=== PATIENT | female | born 1935 | race Caucasian/White ===

== ENCOUNTER → 2018-04-27 | Outpatient (CLI) | payer MEDICARE ==
[2018-04-27 09:44] LABS: ADD MAN DIFF? NO
[2018-04-27 09:58] LABS: BASO # 0.1 x10^3/uL (0.0-0.2); BASO % 1 % (0-3); EOS # 1.7 x10^3/uL (0.0-0.7); EOS % 15 % (0-3); HEMATOCRIT 40.3 % (36.0-47.0); HEMOGLOBIN 13.5 g/dL (12.0-15.5); LYMPH # 2.1 x10^3/uL (1.0-4.8); LYMPH % 19 % (24-48); MEAN CORPUSCULAR HEMOGLOBIN 32 pg (25-35); MEAN CORPUSCULAR HGB CONC 33 g/dL (31-37); MEAN CORPUSCULAR VOLUME 96 fL (79-100); MONO # 0.9 x10^3/uL (0.0-1.1); MONO % 8 % (0-9); NEUT # 6.3 x10^3uL (1.8-7.7); NEUT % 57 % (31-73); PLATELET COUNT 272 x10^3/uL (140-400); RED BLOOD COUNT 4.18 x10^6/uL (3.50-5.40); RED CELL DISTRIBUTION WIDTH 13.1 % (11.5-14.5); WHITE BLOOD COUNT 11.1 x10^3/uL (4.0-11.0)
[2018-04-27 10:02] LABS: ALBUMIN 3.8 g/dL (3.4-5.0); ANION GAP 7 (6-14); BLOOD UREA NITROGEN 23 mg/dL (7-20); CALCIUM 9.5 mg/dL (8.5-10.1); CARBON DIOXIDE 29 mmol/L (21-32); CHLORIDE 103 mmol/L (98-107); GLUCOSE 98 mg/dL (70-99); POTASSIUM 4.4 mmol/L (3.5-5.1); SODIUM 139 mmol/L (136-145)
[2018-04-27 10:03] LABS: PARTIAL THROMBOPLASTIN TIME 35 SEC (24-38)
[2018-04-27 10:07] LABS: INR 0.9 (0.8-1.1); PROTHROMBIN TIME PATIENT 11.7 SEC (11.7-14.0)
[2018-04-27 10:43] LABS: BILIRUBIN,URINE NEGATIVE (NEG); CLARITY,URINE CLEAR; COLOR,URINE YELLOW; GLUCOSE,URINE NEGATIVE (NEG); NITRITE,URINE POSITIVE (NEG); PROTEIN,URINE NEGATIVE (NEG-TRACE); UROBILINOGEN,URINE 0.2 mg/dL (0.2 mg/dL)
[2018-04-27 11:24] LABS: BACTERIA,URINE MANY /HPF (0-FEW); RBC,URINE OCC /HPF (0-2); SQUAMOUS EPITHELIAL CELL,UR MOD /LPF; WBC,URINE 20-40 /HPF (0-4)
[2018-04-27 12:23] LABS: SEDIMENTATION RATE 12 (0-25)
[2018-04-27 22:14] LABS: MRSA BY PCR Negative (Negative)
== END | disposition home or self-care (01) ==
LOC: SURGPAT 08:45
DX: Z01.818 Encounter for other preprocedural examination (principal); M19.012 Primary osteoarthritis, left shoulder; I10 Essential (primary) hypertension; I70.0 Atherosclerosis of aorta
CPT/HCPCS: 36415; 71046; 80048; 81001; 82040; 85025; 85610; 85651; 85730; 87086; 87641; 93005

== ENCOUNTER → 2020-06-04 | Outpatient (CLI) | payer MEDICARE, OTHER ==
[2018-05-13 12:29] VITALS: BP 150/60
[~2020-06-04] MED LIST: AMLO5TAB10 PO; ATEN100T PO; ESTR-113 PO; EZET1TAB30 PO; HYDR-2765 PO; HYDR-3164 PO; LISI30TA4 PO; MELO15TA23 PO; OXYB5TAB10 PO; TRAM50TA PO
[2020-06-04 11:14] LABS: BASO # 0.1 x10^3/uL (0.0-0.2); BASO % 1 % (0-3); EOS # 0.2 x10^3/uL (0.0-0.7); EOS % 3 % (0-3); HEMATOCRIT 42.1 % (36.0-47.0); LYMPH # 1.2 x10^3/uL (1.0-4.8); LYMPH % 17 % (24-48); MEAN CORPUSCULAR HEMOGLOBIN 32 pg (25-35); MEAN CORPUSCULAR HGB CONC 33 g/dL (31-37); MEAN CORPUSCULAR VOLUME 95 fL (79-100); MONO # 0.5 x10^3/uL (0.0-1.1); MONO % 7 % (0-9); NEUT # 5.3 x10^3/uL (1.8-7.7); NEUT % 72 % (31-73); PLATELET COUNT 273 x10^3/uL (140-400); RED BLOOD COUNT 4.42 x10^6/uL (3.50-5.40); RED CELL DISTRIBUTION WIDTH 13.8 % (11.5-14.5); WHITE BLOOD COUNT 7.4 x10^3/uL (4.0-11.0)
[2020-06-04 11:29] LABS: PROTHROMBIN TIME PATIENT 12.5 SEC (11.7-14.0)
[2020-06-04 11:38] LABS: ALBUMIN 3.5 g/dL (3.4-5.0); C-REACTIVE PROTEIN 0.7 mg/L (0-3.3); CREATININE 0.9 mg/dL (0.6-1.0); GFR 59.5; POTASSIUM 4.4 mmol/L (3.5-5.1)
--- NOTE | 2020-06-04 15:38 | RAD ---
EXAM: CHEST 2 VIEWS. HISTORY: Preoperative risk factors. COMPARISON: 04/27/2018. FINDINGS: Frontal and lateral views of the chest are obtained. The lungs are expanded and inferior to the 12th ribs, but the hemidiaphragms are not clearly flattened. There are no confluent infiltrates. There is no pneumothorax or pleural effusion. The heart is borderline enlarged. There are atherosclerotic calcifications of the aorta. A reverse left total shoulder arthroplasty is noted. IMPRESSION: 1. Hyperinflation may reflect deep respiratory effort. Correlate to exclude chronic obstructive pulmonary disease or other causes of air trapping. No confluent infiltrates. Electronically signed by: Oscar Burton MD (06/04/2020 3:35 PM) [id number]
[2020-06-05 01:09] LABS: HEMOGLOBIN A1C 5.5 % (4.8-5.6)
--- NOTE | 2020-06-06 13:16 | EKG ---
[facility] [address] [place] [address] Test Date: 2020-06-04 Test Time: 11:44:09 Pat Name: DAY BANERJEE Department: Room: Gender: F Ball Winder: MAGNOLIA Travis : 1935 Requested By: DEE DEE FREDERICK Order Number: [id number] Reading MD: Kemal Escamilla Measurements Intervals [place] Rate: 51 P: 90 MI: 192 QRS: 52 QRSD: 86 T: 62 QT: 452 QTc: 419 Interpretive Statements SINUS RHYTHM (Bradycardia). INTERPOLATED ATRIAL PREMATURE COMPLEX(ES) Electronically Signed On 06-06-2020 16:19:40 CDT by Kemal Escamilla
== END ==
LOC: SURGPAT 10:21
PROVIDERS: ATTEND Orthopaedic Surgery
DX: Z01.818 Encounter for other preprocedural examination (principal); M12.811 Other specific arthropathies, not elsewhere classified, right shoulder; R00.1 Bradycardia, unspecified
CPT/HCPCS: 36415; 71046; 80048; 82040; 82306; 83036; 85025; 85610; 85730; 86140; 87641; 93005

== ENCOUNTER 2020-06-19 07:19 | Inpatient (IN) | payer MEDICARE, OTHER ==
[2020-06-19] VITALS (8 sets, daily range): BP systolic 118–140; BP diastolic 47–68
[~2020-06-19] VITALS: Ht 160 cm; Wt 58.5 kg
[~2020-06-19 07:19] MED LIST changes: +ACETAMINOPHEN 500 MG TABLET PO PRN; +GABAPENTIN 300 MG CAPSULE. PO PRN; -HYDR-3164 PO; +MELOXICAM 7.5 MG TABLET PO PRN; +TRANEXAMIC ACID 1,000 MG in IV NS 50ML -- 1ST BAG INJ ONE; +TV=100ml MORPHINE 5 MG, KETOROLAC 30 MG, ROPIVacaine 0.5% PF 60 ML, EPINEPH... INT ART ONE; +ceFAZolin SODIUM IV Push 1 GM VIAL. IVP PRN
--- NOTE | 2020-06-19 07:53 | HP ---
ADMIT DATE: 06/19/2020 PREOPERATIVE HISTORY AND PHYSICAL CHIEF COMPLAINT: Right shoulder pain, weakness. HISTORY OF PRESENT ILLNESS: The patient is a very active 84-year-old female familiar to me from a previous reverse shoulder arthroplasty on the left and previous knee surgeries, both of which are doing very well. She continues to be very active, bicycling, walking and has severe ongoing right shoulder pain and weakness that was worsened after moving some heavy flower pots and although her intermittent numbness is mostly resolved. She has severe creaking in the shoulder and has some difficulty even getting it overhead and doing daily activities. PAST MEDICAL HISTORY: Significant for arthritis, dyslipidemia, hypertension, diverticulitis, seasonal allergies, reflux disease, and constipation. PAST SURGICAL HISTORY: Left reverse shoulder arthroplasty, partial hysterectomy, cholecystectomy, appendectomy, tonsillectomy, previous spine surgery and a bladder suspension. FAMILY HISTORY: Significant for Alzheimer's disease and glaucoma in her mother, Alzheimer's in her brother, breast cancer in her sister, and Alzheimer's in a grandmother. SOCIAL HISTORY: Denies tobacco, alcohol or drug use. MEDICATIONS: List is reviewed. ALLERGIES: Include CELEBREX, which is listed as anaphylaxis, she says it makes her heart flutter, SULFA gives her a rash as the CIPROFLOXACIN. As far as medications go, she indicates recent stoppage of her Meloxicam, which otherwise helped her in some of her other joints. REVIEW OF SYSTEMS: Denies any chest pain, shortness of breath, recent febrile illness or other constitutional symptoms. Significant for the right shoulder pain becoming more severe. PHYSICAL EXAMINATION: VITAL SIGNS: Height 63 inches, weight 129 pounds. Other vitals per her admission sheet. HEENT: Atraumatic, normocephalic. HEART: Regular rate and rhythm. LUNGS: Clear to auscultation bilaterally and benign. EXTREMITIES: Exam of the right shoulder shows limited elevation and rotation of her right shoulder due to severe crepitus. There is no instability present. Left shoulder has a well-healed incision from a reverse shoulder arthroplasty and near full active range of motion. Deltoid function is intact bilaterally. She has normal parascapular motion. Normal alignment, stability, bilateral elbows and wrists with intact motor function, distal pulses, sensation, reflexes, skin in both upper extremities throughout. IMAGING: X-rays show severe degenerative change and proximal humeral migration on the right shoulder. IMPRESSION: Right shoulder pain and rotator cuff arthropathy, right shoulder. TREATMENT PLAN: We have previously discussed a similar procedure of reverse shoulder arthroplasty to compensate for the rotator cuff arthropathy that she has on the right shoulder, very similar risks, benefits, postoperative course and recovery to the left shoulder, which she is certainly familiar with. We talked about the possibility of infection, nerve or blood vessel damage, medical or other anesthetic complications among others and she is so pleased with the other results. She wants to proceed with surgical evaluation and treatment on the right shoulder today. DEE DEE FREDERICK MD DR: CARMEN/hiral JOB#: [id number] / [id number]
[2020-06-19] MEDS ORDERED: TRANEXAMIC ACID 1,000 MG in IV NS 50ML -- 2ND BAG INJ ONE (08:00)
[2020-06-19] MEDS ORDERED: ROPIVacaine 0.5% PF 20 ML VIAL. ONE (08:15)
[2020-06-19] MEDS ORDERED: DEXAMETHASONE SOD PHOS 20 MG/5 ML VIAL. ONE (08:15)
[2020-06-19] MEDS ORDERED: IV RINGERS,LACTATED 1000ML 1,000 ML IV SCH ×2 (08:30→08:40)
[2020-06-19] MEDS ORDERED: PROCHLORPERAZINE 10 MG/2 ML VIAL. IV PRN (08:45)
[2020-06-19] MEDS ORDERED: LIDOCAINE 1% PF 2 ML VIAL. ID PRN (08:45)
[2020-06-19] MEDS ORDERED: HYDROmorphone 2 MG/ML VIAL IV PRN ×2 (08:45→09:45)
[2020-06-19] MEDS ORDERED: MORPHINE SULFATE 2 MG/ML VIAL. IV PRN (08:45)
[2020-06-19] MEDS ORDERED: fentaNYL PF VIAL 100 MCG/2 ML VIAL IV PRN ×2 (08:45)
[2020-06-19] MEDS ORDERED: ONDANSETRON PF 4 MG/2 ML VIAL. IV PRN (08:45)
[2020-06-19] MEDS ORDERED: ROCURONIUM 50 MG/5 ML VIAL. ONE (09:01)
[2020-06-19] MEDS ORDERED: LIDOCAINE 2% PF 5 ML VIAL. ONE (09:02)
[2020-06-19] MEDS ORDERED: PROPOFOL 10 MG/ML (20ML) VIAL. IV ONE (09:02)
[2020-06-19] MEDS ORDERED: ONDANSETRON PF 4 MG/2 ML VIAL. ONE (09:02)
[2020-06-19] MEDS ORDERED: MIDAZOLAM HCL/PF 2 MG/2 ML VIAL. ONE (09:03)
[2020-06-19] MEDS ORDERED: GLYCOPYRROLATE 1 MG/5 ML VIAL. ONE (09:24)
[2020-06-19] MEDS ORDERED: IV NORMAL SALINE 1000ML BAG 1,000 ML IV SCH (09:32)
[2020-06-19] MEDS ORDERED: IV DEXTROSE 5 %-0.45 % NACL 1,000 ML IV SCH (09:32)
[2020-06-19] MEDS ORDERED: NALOXONE 0.4 MG/ML VIAL. IV PRN (09:45)
[2020-06-19] MEDS ORDERED: oxyCODONE/APAP 7.5/325 1 TAB TABLET PO PRN (09:45)
[2020-06-19] MEDS ORDERED: DEXTROSE 50% 25 GM / 50ML DISP.SYRIN. IV PRN (09:45)
[2020-06-19] MEDS ORDERED: CALCIUM CARBONATE 500 MG TAB.CHEW PO PRN (09:45)
[2020-06-19] MEDS ORDERED: ZOLPIDEM 5 MG TABLET. PO PRN (09:45)
[2020-06-19] MEDS ORDERED: 0.9 % SODIUM CHLORIDE 10 ML DISP.SYRIN. IV PRN (09:45)
[2020-06-19] MEDS ORDERED: ACETAMINOPHEN 325 MG TABLET. PO PRN (09:45)
[2020-06-19] MEDS ORDERED: ceFAZolin SODIUM IV Push 1 GM VIAL. IVP SCH (09:45)
[2020-06-19] MEDS ORDERED: HYDROcodone/APAP 10/325 1 TAB TABLET PO PRN (09:45)
[2020-06-19] MEDS ORDERED: oxyCODONE/APAP 5/325 1 TAB TABLET PO PRN (09:45)
--- NOTE | 2020-06-19 09:53 | PDOC4 ---
Operative Note Operative Note Date of surgery: 06/19/2020 Preoperative diagnosis: Degenerative joint disease left knee Postoperative diagnosis: Same Operative procedure: Left total knee arthroplasty Surgeon: Ted Knitting Tester: Yefri Lopez nurse practitioner Anesthesia: General Estimated blood loss: 25 cc Complications: None Specimens: Cartilage surfaces to pathology Operative indications: Please see my dictated history and physical of today and previous clinic notes from our physician's stores assistant for detailed operative indications Operative text: Patient was identified procedure verified patient placed in the supine position on the operating table. After adequate amounts of general anesthesia were administered the left lower extremity was prepped and draped in standard sterile fashion with a thigh tourniquet. After timeout was performed patient procedure identified and verified the left lower extremity was exsanguinated by Esmarch bandage tourniquet inflated to 300 mmHg a midline incision was made along with a mid vastus approach patella was everted fat pad was excised femur was drilled with the intramedullary guide and a standard distal cut was made sizing sized at a size 4 and AP and chamfer cuts were made. Menisci were excised PCL was preserved and tibial cut was made with the external tibial cutting guide and flexion extension gaps balanced with a size 9 spacer. Tibial component sized at a size 4 which was drilled and broached and trial femoral component was impacted and osteophytes trimmed and verified to have excellent balance patella was in excellent condition and therefore did not re quire resurfacing. After drilling the distal femoral pegs trial components were removed and thorough irrigation carried out normal saline solution and bleeding points controlled by electrocautery. The following [employer] components were cemented in place with polymethylmethacrylate cement: A size 4 journey 2 tibial component, and Oxinium size 4 cruciate retaining femoral component with a trial 9 mm spacer excess cement was removed the periosteum and joint capsule were infused with intra-articular injection mixture. Hemovac drain and intra- articular catheter were placed. After cement was dry a size 9 mm cruciate retaining polyethylene spacer was snapped into place. Iodine irrigation was diluted with a liter of normal saline solution with pulse lavage 1 g of vancomycin placed in the joint closure of the mid vastus incision with running #1 strata fix PDS suture. Subcutaneous closure with buried Vicryl suture skin closure with 3-0 strata fix Monocryl. Jevon dressing was placed. Toes were noted to be warm pink following deflation of the tourniquet and patient was returned to recovery room in stable condition having tolerated procedure well. Yefri Lopez nurse practitioner was present for the procedure assisted in the positioning prepping draping retraction closure and dressings DEE DEE FREDERICK MD Jun 19, 2020 09:53
[2020-06-19] MEDS ORDERED: DEXAMETHASONE SOD PHOS 4 MG/ML VIAL ONE (10:03)
[2020-06-19] MEDS ORDERED: fentaNYL PF VIAL 100 MCG/2 ML VIAL ONE (12:26)
--- NOTE | 2020-06-19 12:41 | RAD ---
SHOULDER 2+V RIGHT History: Postop Comparison: April 18, 2020 Findings: 2 views the right shoulder submitted. There is now right shoulder arthroplasty. There are skin clips. There is some atherosclerotic calcification of the right carotid artery in the neck. Impression: 1. There is now right shoulder arthroplasty. Electronically signed by: Michael Dumas MD (06/19/2020 12:39 PM) [id number]
--- NOTE | 2020-06-19 13:15 | NUR ---
received from recovery. she is alert and oriented x4. she denies pain except for a burning mid bicep area. she has no motion or feeling in her right arm. she does have good pulses bilateral radial. at bedside
--- NOTE | 2020-06-19 14:39 | PDOC4 ---
Operative Note Operative Note Date of surgery: 06/19/2020 Preoperative diagnosis: Right shoulder rotator cuff arthropathy Postoperative diagnosis: Same Operative procedure: Right reverse shoulder arthroplasty and biceps tenodesis Surgeon: Ted Building Maintenance Repairer: Yefri Lopez nurse practitioner Anesthesia: General endotracheal Estimated blood loss: 75 cc Complications: None Operative indications: Please see my dictated history and physical of today and previous clinic notes for detailed operative indications Operative text: Patient was identified procedure verified patient placed in the supine position on the operating table. After adequate amounts of general anesthesia were administered she was placed in the beachchair position with the T-Max headrest and spider arm lakhani and the right shoulder was prepped and draped in standard sterile fashion. After timeout was performed patient procedure identified and verified a deltopectoral incision was made deltoid and cephalic vein were taken laterally the superior portion of the pectoralis was released as were the distal insertion of the deltoid to minimize traction injury. Subscapularis was detached from its insertion and tagged. The shoulder was dislocated and reaming carried out up to a size 15 and the cutting guide placed in proper version and a size 15 humeral component was placed as a trial. Biceps tendon was noted to have significant fraying and was tenodesed in the groove and cut and excised proximally. Glenoid was exposed guidepin was placed in slight declination inferiorly at the glenoid which was reamed back to bleeding tissue and drilled further to enhance bony ingrowth. A standard trabecular metal glenoid component was impacted into place after preparation and 36 mm screws were placed to the base of the coracoid and down the scapular spine. Both gave excellent fixation and were locked in place. A 36 mm glenosphere component was then tapped in place to engage the [place] taper and completely engaged. Trial fitting was accomplished with a standard 6 mm liner trial which gave full range of motion and excellent stability. Trial components were then removed and the 15 mm humeral stem was preassembled on the back table with a 6 mm standard liner and impacted in proper version reduced and found to have equivalent range of motion and stability. The irrigation carried out normal saline solution. Pectoralis repair carried out with #5 max braid suture subscapularis was repaired to its origin with #5 max braid in a grasping fashion as well fascia and subcutaneous layer were closed with buried Vicryl suture skin closure with mile sterile dressings were applied patient was returned to recovery room in stable condition having tolerated procedure well. Yefri Lopez nurse practitioner was present for the procedure assisted in the patient positioning prepping draping retraction closure and dressings DEE DEE FREDERICK MD Jun 19, 2020 14:39
[2020-06-19] MEDS: ceFAZolin SODIUM IV Push 1 GM VIAL. IVP SCH ×2 (14:46→21:06)
[2020-06-19] MEDS: FERROUS SULFATE 325 MG TABLET. PO SCH (17:00)
[2020-06-19] MEDS: KETOROLAC TROMETHAMINE 10 MG TABLET PO SCH (17:00)
[2020-06-20 04:43] LABS: HEMATOCRIT 34.7 % (36.0-47.0); HEMOGLOBIN 11.7 g/dL (12.0-15.5)
[2020-06-20] MEDS: ceFAZolin SODIUM IV Push 1 GM VIAL. IVP SCH (05:42)
[2020-06-20] MEDS: KETOROLAC TROMETHAMINE 10 MG TABLET PO SCH ×2 (05:43→12:55)
[2020-06-20] MEDS ORDERED: MAGNESIUM HYDROXIDE 2,400 MG/30 ML ORAL.SUSP. PO PRN (06:00)
[2020-06-20 06:34] VITALS: BP 129/53
--- NOTE | 2020-06-20 07:30 | PDOC ---
ORTHO PROGRESS NOTES DATE: 06/20/20 TIME: 07:23 Subjective Patient states that she is in very little pain at this time and ready to go home. Post-op Day: 1 Procedure Right reverse total shoulder arthroplasty with biceps tenodesis Vitals Vital Signs Date Time Temp Pulse Resp B/P (MAP) Pulse Ox O2 Delivery O2 Flow Rate FiO2 06/20/20 06:34 97.6 64 20 129/53 (78) 97 Room Air 97.6 06/19/20 12:00 8 Labs Laboratory Tests Test 06/20/20 04:14 Hemoglobin 11.7 g/dL (12.0-15.5) Hematocrit 34.7 % (36.0-47.0) Mean Corpuscular Hemoglobin Concent 34 g/dL (31-37) Laboratory Tests Test 06/20/20 04:14 Hemoglobin 11.7 g/dL (12.0-15.5) Hematocrit 34.7 % (36.0-47.0) Mean Corpuscular Hemoglobin Concent 34 g/dL (31-37) Notes Awake and alert and oriented Assessment and Plan Postop day 1 status post right reverse total shoulder arthroplasty with biceps tenodesis. Motor and sensation intact distally. Dressing is dry and intact. She has mild residual numbness distally. Physical therapy today and possibly discharge. CONNER MEJIAS APRN Jun 20, 2020 07:30
--- NOTE | 2020-06-20 07:40 | NUR ---
Sitting up in bed. No c/o at this time. Resting right arm on sling and pillow. States "When can I go home". Discussed the plan of care for today. Verbalized understanding.
[2020-06-20] MEDS: FERROUS SULFATE 325 MG TABLET. PO SCH (08:17)
[2020-06-20] MEDS ORDERED: EZETIMIBE 10 MG TABLET. PO SCH (09:00)
[2020-06-20] MEDS ORDERED: SIMVASTATIN 20 MG TABLET PO SCH (09:00)
[2020-06-20] MEDS ORDERED: amLODIPine BESYLATE 5 MG TABLET PO SCH (09:00)
[2020-06-20] MEDS ORDERED: ATENOLOL 50 MG TABLET. PO SCH (09:00)
[2020-06-20] MEDS ORDERED: SENNOSIDES/DOCUSATE 8.6/50MG TABLET. PO SCH (09:00)
[2020-06-20] MEDS ORDERED: MELOXICAM 7.5 MG TABLET PO SCH (09:00)
[2020-06-20] MEDS ORDERED: MULTIVITAMIN with MINERAL TABLET. PO SCH (09:00)
[2020-06-20] MEDS ORDERED: ESTRADIOL 1 MG TABLET. PO SCH (09:00)
[2020-06-20] MEDS ORDERED: OXYBUTYNIN CHLORIDE 5 MG TABLET PO SCH (09:00)
[2020-06-20 11:05] VITALS: BP 119/49
[2020-06-20 11:20] VITALS: BP 129/53
--- NOTE | 2020-06-20 11:21 | NUR ---
Held amlodipine and atenolol this am. BP125/59 and hrt rate 63. Pt state it was low and didn't want to take medications. BP rechecked at 1100 BP119/49 and hrt rate 68. Encourage pt to follow up with primary to check and adjust bp medication.Also to check BP every morning. Verbalized understanding.Cont. monitor.
[2020-06-20] MEDS ORDERED: HYDR-3164 PO (13:32)
--- NOTE | 2020-06-20 13:34 | DISCH ---
DISCHARGE INSTRUCTIONS Condition on Discharge Condition on Discharge: Stable Activity After Discharge Activity Instructions for Disc: Activity as tolerated (May get out of sling for pendulum exercises and daily activity with eating gentle pushing pulling lifting a half a gallon of milk etc.) Bathing Instructions: Shower-keep dressing dry Lifting Instructions after Dis: No heavy lifting, No pulling or pushing, Do not lift >10 pounds Exercise Instruction after Dis: Exercise per therapy (Do not reach around behind the back for 2 months postoperatively) Driving Instructions after Dis: No driving for 2 weeks Weight Bearing Status after Di: No restrictions Diet after Discharge Diet after Discharge: Regular Diet Texture: Regular Wound Incision Care Wound/Incision Care: Ice to area for comfort, Do not change dressing Community/Resources/Services Services at Discharge: PT EVALUATE & TREAT Contacting the after DC Call your doctor for: Concerns you may have Follow-Up Follow up with: Dr. Jean 10 days Treatment/Equipment after DC Adaptive Equipment Issued: None DEE DEE JEAN MD Jun 20, 2020 13:34
--- NOTE | 2020-06-20 14:00 | NUR ---
Discharge instructions given with prescription. Answered questions and concerns. Verbalized understanding. Pt discharged home accompanied by spouse. Escorted by w/c.
[2020-06-20] MEDS ORDERED: BISACODYL 10 MG SUPP.RECT. PR PRN (16:00)
--- NOTE | 2020-06-20 21:20 | DS ---
DATE OF DISCHARGE: 06/20/2020 ORTHOPEDIC DISCHARGE SUMMARY CHIEF COMPLAINT: Rotator cuff arthropathy, right shoulder. PROCEDURE: Right reverse shoulder arthroplasty. DISPOSITION: To home with outpatient physical therapy. DISPOSITION MEDICATIONS: Include [place] 5/325 one to two p.o. q.4-6 hours p.r.n. pain. Resume preoperative medications. Keep shoulder dressing clean and dry, may shower if dressing is sealed and not leaking. DISCHARGE INSTRUCTIONS: Follow up with Dr. Jean in 10 days. May use shoulder for fine motor use and some gentle stretching, reaching, lifting 5 pounds or less and avoiding reaching her right arm around behind her back for the first 2 months postoperatively. BRIEF DESCRIPTION OF HOSPITAL COURSE: The patient underwent uneventful reverse total shoulder arthroplasty for rotator cuff arthropathy and did well postoperatively. Pain was well controlled. She remained medically stable and was discharged home in stable condition. DEE DEE JEAN MD DR: CARMEN/hiral JOB#: [id number] / [id number]
== END 2020-06-20 14:15 | disposition home or self-care (01) | DRG 470 ==
LOC: OPSVCIP 07:28 → EDSTATUS 09:30 → 4 SOUTHEST 13:12
PROVIDERS: ADMIT Orthopaedic Surgery; ATTEND Orthopaedic Surgery
PROC: 0RRJ00Z Replacement of Right Shoulder Joint with Reverse Ball and Socket Synthetic Substitute, Open Approach (ICD-10-PCS; 2020-06-19)
PROC: 0SRD069 Replacement of Left Knee Joint with Oxidized Zirconium on Polyethylene Synthetic Substitute, Cemented, Open Approach (ICD-10-PCS; principal; 2020-06-19 09:30)
DX: M17.12 Unilateral primary osteoarthritis, left knee (principal); M19.011 Primary osteoarthritis, right shoulder; E78.5 Hyperlipidemia, unspecified; I10 Essential (primary) hypertension; I49.8 Other specified cardiac arrhythmias; Z80.3 Family history of malignant neoplasm of breast; Z82.0 Family history of epilepsy and other diseases of the nervous system; Z83.511 Family history of glaucoma; Z90.711 Acquired absence of uterus with remaining cervical stump; Z96.611 Presence of right artificial shoulder joint; Z96.612 Presence of left artificial shoulder joint; K21.9 Gastro-esophageal reflux disease without esophagitis; Z88.8 Allergy status to other drugs, medicaments and biological substances; Z79.899 Other long term (current) drug therapy; Z90.49 Acquired absence of other specified parts of digestive tract; Z90.710 Acquired absence of both cervix and uterus
CPT/HCPCS: 36415; 73030; 85014; 85018; 86850; 86900; 86901; A7015; J0171; J0690; J1100; J1885; J2250; J2270; J2405; J2704; J2795; J3010; J3490; J7030; J7042; J7120; 97110-GP; 97116-GP; 97535-GO; A4565; C1769; G0378